=== PATIENT | male | born 1960 ===

== ENCOUNTER 2020-09-02 17:47 | Emergency (ER) | payer SELFPAY ==
[~2020-09-02] VITALS: Ht 165.1 cm; Wt 63.5 kg
[2020-09-02 17:50] VITALS: BP 118/72
--- NOTE | 2020-09-02 17:50 | NUR ---
BIB [facility] AFTER HE BECAME SHORT OF BREATH WHILE STANDING BESIDE HIS FRIEND WHO WAS SMOKING,IMPROVED AFTER ALBUTEROL TREATMENT WAS ADMINISTERED BY EMS .WAITING FOR ER BED IN A CHAIR
--- NOTE | 2020-09-02 18:30 | NUR ---
TO ER BED 17 FOR ALICIA CALI,MONITORED,O2 VIA NC.
[2020-09-02] MEDS ORDERED: ALBU8.5H8 INH (19:35)
--- NOTE | 2020-09-02 20:00 | NUR ---
Patient discharged to home in stable condition. Written and verbal after care instructions given. Patient verbalizes understanding of instruction. PT WAS PROVIDED W/ A TAXI VOUCHER ON DISCHARGE
== END 2020-09-02 20:00 | disposition home or self-care (01) ==
LOC: ER 17:56
DX: J45.909 Unspecified asthma, uncomplicated (principal); E11.9 Type 2 diabetes mellitus without complications; I10 Essential (primary) hypertension; H54.40 Blindness, one eye, unspecified eye; Z79.899 Other long term (current) drug therapy